=== PATIENT | female | born 1960 | race Two or more races ===

== ENCOUNTER 2019-10-25 10:26 | Outpatient (CLI) | payer OTHER | END 2019-10-25 10:45 | disposition home or self-care (01) | LOC: MAMO-SONO 10:26 | DX: Z12.31 Encounter for screening mammogram for malignant neoplasm of breast (principal); N60.11 Diffuse cystic mastopathy of right breast; N60.12 Diffuse cystic mastopathy of left breast ==

== ENCOUNTER 2019-10-27 10:05 | Outpatient (CLI) | payer OTHER | END 2019-10-27 10:06 | disposition home or self-care (01) | LOC: SONOGRAMA 10:05 | DX: E04.1 Nontoxic single thyroid nodule (principal) ==

== ENCOUNTER → 2020-07-25 11:05 | Outpatient (CLI) | payer OTHER | END | disposition home or self-care (01) | LOC: LAB 11:05 | PROVIDERS: ATTEND Specialist | DX: E03.8 Other specified hypothyroidism (principal); E78.49 Other hyperlipidemia; E55.9 Vitamin D deficiency, unspecified ==

== ENCOUNTER 2020-07-28 08:33 | Outpatient (CLI) | payer OTHER | END 2020-07-28 08:50 | disposition home or self-care (01) | LOC: TOM 08:33 | PROVIDERS: ATTEND Internal Medicine Gastroenterology | DX: K42.9 Umbilical hernia without obstruction or gangrene (principal); K44.9 Diaphragmatic hernia without obstruction or gangrene ==

== ENCOUNTER 2021-01-12 11:33 | Outpatient (CLI) | payer OTHER | END 2021-01-12 11:34 | disposition home or self-care (01) | LOC: PPH VACUNA 11:33 | DX: Z23 Encounter for immunization (principal) ==

== ENCOUNTER 2023-03-17 14:59 | Outpatient (CLI) | payer OTHER | END 2023-03-17 15:08 | disposition home or self-care (01) | LOC: MAMO-SONO 14:59 | PROVIDERS: ATTEND Obstetrics & Gynecology | DX: Z12.31 Encounter for screening mammogram for malignant neoplasm of breast (principal); N60.11 Diffuse cystic mastopathy of right breast; N60.12 Diffuse cystic mastopathy of left breast ==

== ENCOUNTER 2024-09-25 07:59 | Outpatient (CLI) | payer OTHER | END 2024-09-25 08:16 | disposition home or self-care (01) | LOC: MAMO-SONO 07:59 | PROVIDERS: ATTEND Obstetrics & Gynecology | DX: N64.89 Other specified disorders of breast (principal); Z12.31 Encounter for screening mammogram for malignant neoplasm of breast ==

== ENCOUNTER 2025-01-15 07:31 | Outpatient (CLI) | payer OTHER | END 2025-01-15 07:46 | disposition home or self-care (01) | LOC: SONOGRAMA 07:31 | PROVIDERS: ATTEND Obstetrics & Gynecology | DX: E06.3 Autoimmune thyroiditis (principal) ==